=== PATIENT | female | born 1980 | race Two or more races ===

== ENCOUNTER 2017-09-25 06:00 | Day surgery (SDC) | payer OTHER ==
[~2017-09-25 06:00] MED LIST: DAFLONEX-XL TA1 EACH PO
[2017-09-25] MEDS ORDERED: CODE1TAB37 PO (08:33)
== END 2017-09-25 10:25 | disposition home or self-care (01) ==
LOC: CIR.AMB 06:00
DX: Z30.2 Encounter for sterilization (principal)

== ENCOUNTER 2023-01-13 10:45 | Inpatient (IN) | payer OTHER ==
[~2023-01-13] VITALS: Ht 160 cm; Wt 104.3 kg
[~2023-01-13 10:45] MED LIST changes: +CODE1TAB37 PO
[2023-01-16 16:39] LABS: HEMATOCRIT 40.3 % (36.0-45.00); MEAN CELL VOLUME 80.5 fL (80.00-100.00); MEAN CORPUSCULAR HGB CONC 32.3 g/dl (32.0-36.0); PLATELET COUNT 229 K/uL (150-450); RED BLOOD COUNT 5.01 M/uL (4.00-6.00)
[2023-01-16 17:02] LABS: ALBUMIN 3.3 gm/dL (3.4-5.0); BILIRUBIN TOTAL 0.45 mg/dL (0.3-1.2); CALCIUM 8.3 mg/dL (8.5-10.1); CREATININE SERUM 1.1 mg/dL (0.55-1.02); GFR 55.01; GLOBULINA 3.3 G/DL (2.4-3.5); POTASSIUM 4.16 mEq/L (3.5-5.1); TOTAL PROTEIN 6.6 gm/dL (6.4-8.2)
[2023-01-17] MEDS ORDERED: Tylenol #3 PO (09:14)
[2023-01-17] MEDS ORDERED: NAPR500T14 PO (09:14)
== END 2023-01-17 11:34 | disposition home or self-care (01) | DRG 743 ==
LOC: OB/GYN 01-16 06:01 → O/R 01-16 06:01 → OB/GYN 01-16 10:45
PROVIDERS: ADMIT Obstetrics & Gynecology; ATTEND Obstetrics & Gynecology
PROC: 0UT7FZZ Resection of Bilateral Fallopian Tubes, Via Natural or Artificial Opening With Percutaneous Endoscopic Assistance (ICD-10-PCS; 2023-01-16)
PROC: 0UT2FZZ Resection of Bilateral Ovaries, Via Natural or Artificial Opening With Percutaneous Endoscopic Assistance (ICD-10-PCS; 2023-01-16)
PROC: 0TJB8ZZ Inspection of Bladder, Via Natural or Artificial Opening Endoscopic (ICD-10-PCS; 2023-01-16)
PROC: 0UT9FZZ Resection of Uterus, Via Natural or Artificial Opening With Percutaneous Endoscopic Assistance (ICD-10-PCS; principal; 2023-01-16 18:00)
DX: D25.1 Intramural leiomyoma of uterus (principal); N80.03 Adenomyosis of the uterus; Z20.822 Contact with and (suspected) exposure to COVID-19; N80.201 Endometriosis of right fallopian tube, unspecified depth